=== PATIENT | female | born 1970 | race Caucasian/White ===

== ENCOUNTER 2017-09-27 11:26 | Emergency (ER) | payer BC, OTHER ==
[2017-09-27] MEDS ORDERED: ALPRAZolam TAB* 0.25 MG PO ONE (12:00)
[2017-09-27 12:45] VITALS: BP 168/98
--- NOTE | 2017-09-27 13:56 | ED ---
Laceration/Wound HPI - HPI Summary HPI Summary: Patient is a 47-year-old female presenting to the ED after a fall with a right cephalohematoma to the forehead. Small 1 cm superficial laceration overlying. Denies LOC. Denies visual changes or disturbances, confusion, memory loss, nausea, vomiting. Also complains of right shoulder pain, but has full ROM and states it is "muscular and not broken." History of hypertension and has not taken her medications yet today. She states she is prone to accidents and this was definitely a mechanical fall, denying any syncopal episode. - History of Current Complaint Stated Complaint: HEAD INJURY Time Seen by Provider: 09/27/17 11:45 Hx Obtained From: Patient Mechanism of Injury: Sharp/Blunt Trauma Onset/Duration: Sudden Onset Aggravating: Movement Alleviating: Compression Timing: Constant Onset Severity: Mild Current Severity: Mild Pain Intensity: 3 Pain Scale Used: 0-10 Numeric Associated Signs & Symptoms: Negative - Allergy/Home Medications Allergies/Adverse Reactions: Allergies Allergy/AdvReac Type Severity Reaction Status Date / Time erythromycin base Allergy Vomiting Verified 09/27/17 11:27 ibuprofen Allergy Hives Verified 09/27/17 11:27 Sulfa (Sulfonamide Allergy Hives Verified 09/27/17 11:27 Antibiotics) Home Medications: Home Medications Lisinopril TAB* [Prinivil TAB*] 20 mg PO DAILY 09/27/17 [History Confirmed 09/27] Metoprolol Succinate XL TAB* [Toprol XL TAB*] 25 mg PO DAILY 09/27/17 [History Confirmed 09/27/17] PMH/Surg Hx/FS Hx/Imm Hx Previously Healthy: Yes Cardiovascular History: Reports: Hx Hypertension Denies: Hx Pacemaker/ICD Musculoskeletal History: Reports: Other Musculoskeletal History - SEVERE DEGENERATIVE ARTHRITIS IN BOTH KNEES Denies: Hx Rheumatoid Arthritis, Hx Osteoporosis Psychiatric History: Denies: Hx Panic Disorder - Surgical History Surgery Procedure, Year, and Place: REDUCTION - BREAST -AGE 22 - Immunization History Hx Pertussis Vaccination: No Immunizations Up to Date: Unable to Obtain/Confirm Infectious Disease History: No Infectious Disease History: Denies: Traveled Outside the [place] in Last 30 Days - Social History Occupation: Employed Full-time Lives: With Family Alcohol Use: Weekly Hx Substance Use: No Substance Use Type: Reports: None Smoking Status (MU): Former Smoker Review of Systems Constitutional: Negative Negative: Fever, Chills, Skin Diaphoresis Negative: Palpitations, Chest Pain Negative: Shortness Of Breath, Cough Genitourinary: Negative Positive: no symptoms reported, see HPI Negative: Arthralgia, Myalgia Skin: Negative Neurological: Negative All Other Systems Reviewed And Are Negative: Yes Physical Exam Triage Information Reviewed: Yes Vital Signs On Initial Exam: Initial Vitals Temp Pulse Resp BP Pulse Ox 97.6 F 98 16 162/122 99 09/27/17 11:29 09/27/17 11:29 09/27/17 11:29 09/27/17 11:29 09/27/17 11:29 Vital Signs Reviewed: Yes Appearance: Positive: Well-Appearing, Signs of Trauma Skin: Positive: Skin Color Reflects Adequate Perfusion Head/Face: Positive: Cephalohematoma Eyes: Positive: EOMI, MILES, Conjunctiva Clear Neck: Positive: Supple, Nontender, No Lymphadenopathy Respiratory/Lung Sounds: Positive: Clear to Auscultation, Breath Sounds Present Cardiovascular: Positive: RRR, Pulses are Symmetrical in both Upper and Lower Extremities Musculoskeletal: Positive: Pain @ - right shoulder Neurological: Positive: Speech Normal Diagnostics - Vital Signs Vital Signs Temp Pulse Resp BP Pulse Ox 09/27/17 12:44 98.3 F 84 18 168/98 98 09/27/17 11:29 97.6 F 98 16 162/122 99 - Laboratory Lab Statement: Any lab studies that have been ordered have been reviewed, and results considered in the medical decision making process. Laceration Repair Course/Dx - Course Course Of Treatment: During the course treatment the patient's evaluated s/p fall. There is a cephalohematoma to the right forehead. Denies any LOC, headache, confusion, memory loss suggestive of a concussion. She is A&O 3 and GCS score 15. Denies any other symptoms at this time. She states the pain to her right shoulder is muscular and is declining a x-ray at this time. Cleansed wound thoroughly and adhesive glue applied. Patient is okay for discharge at this time. I've given her strict return precautions. She voices no concerns at this time. - Clinical Impression Provider Diagnoses: Fall, Traumatic cephalohematoma Discharge - Sign-Out/Discharge Documenting (check all that apply): Patient Departure - Discharge Plan Condition: Stable Disposition: HOME Patient Education Materials: Hematoma (ED) Referrals: Jennifer Bernabe MD [Primary Care Provider] - Additional Instructions: Ice to the area Place bandaid over the area after about 1 hour/ may change as needed Tylenol for discomfort You may develop some concussive like symptoms such as headache, nausea, dizziness, blurry vision If this develops, please bring rest as much as possible, did not look at TV screens, phone screens, do not read or write until he began to feel improved - Billing Disposition and Condition Condition: STABLE Disposition: Home
== END 2017-09-27 12:44 | disposition home or self-care (01) ==
LOC: ED 11:26
DX: S09.90XA Unspecified injury of head, initial encounter (principal); S01.81XA Laceration without foreign body of other part of head, initial encounter; W19.XXXA Unspecified fall, initial encounter; Y92.9 Unspecified place or not applicable; Z87.891 Personal history of nicotine dependence; Z86.79 Personal history of other diseases of the circulatory system
CPT/HCPCS: 99282